=== PATIENT | male | born 1985 | race Caucasian/White ===

== ENCOUNTER 2023-10-15 00:03 | Emergency (ER) | payer OTHER ==
[2023-10-15 00:13] VITALS: BP 127/74; PULSE 71; RESP 18; TEMP 98.7; BMI 28.0
[2023-10-15] MEDS ORDERED: KETOROLAC TROMETHAMINE 30 MG/1 ML VIAL ONE (01:12)
[2023-10-15] MEDS ORDERED: LIDOCAINE 4% PATCH TP ONE (01:12)
[2023-10-15] MEDS: KETOROLAC TROMETHAMINE 30 MG/1 ML VIAL IM ONE (01:16)
[2023-10-15] MEDS: LIDOCAINE 5% TOPICAL PATCH TP ONE (01:17)
[2023-10-15] MEDS ORDERED: LIDOCAINE PATCH REMOVAL MC SCH (22:00)
== END 2023-10-15 02:36 | disposition home or self-care (01) ==
LOC: JER 00:03
PROC: 3E0233Z Introduction of Anti-inflammatory into Muscle, Percutaneous Approach (ICD-10-PCS; principal; 2023-10-15)
DX: M54.50 Low back pain, unspecified (principal); R51.9 Headache, unspecified; V49.40XA Driver injured in collision with unspecified motor vehicles in traffic accident, initial encounter; Y92.410 Unspecified street and highway as the place of occurrence of the external cause
CPT/HCPCS: 99284-25